=== PATIENT | female | born 1970 | race Caucasian/White ===

== ENCOUNTER 2018-06-30 06:55 | Inpatient (IN) ==
[2018-06-30] MEDS ORDERED: NITROGLYCERIN 2% OINT 1 INCH/GM PACK TOP STA (07:17)
[2018-06-30] MEDS ORDERED: ONDANSETRON 4 MG/2 ML VIAL IV STA (07:17)
[2018-06-30] MEDS ORDERED: ASPIRIN 325 MG TABLET PO STA (07:17)
[2018-06-30] MEDS ORDERED: methylPREDNISolone SOD SUC 125 MG/2 ML VIAL IV STA (07:18)
[2018-06-30] MEDS ORDERED: ALBUTEROL NEB SOLN 5 MG/ML 20 ML/BOTTLE CONT NEB STA (07:18)
[2018-06-30] MEDS ORDERED: hydrALAZINE 20 MG/1 ML VIAL IV STA ×2 (07:18→08:17)
[2018-06-30 07:30] LABS: Basophils # 0.1 10*3/uL (0.0-0.2); Basophils % 0.7 % (0.0-0.8); Eosinophils # 0.3 10*3/uL (0.0-0.87); Hematocrit 43.9 VOL% (35.7-47.0); Hemoglobin 13.6 GM/DL (12.0-16.0); Immature Granulocytes % 0.2 %; Immature Granulocytes Absolute 0.02 #; Lymphocytes # 1.6 10*3/uL (1.4-4.0); Lymphocytes % 20.3 % (21.3-54.2); Mean Corpuscular Hemoglobin 27 PG (27-34); Mean Corpuscular Volume 86.4 FL (87-102); Mean Platelet Volume 11.4 FL (9.6-12.0); Monocytes # 0.4 10*3/uL (0.11-0.8); Neutrophils # 5.6 10*3/uL (1.4-7.4); Neutrophils % 69.8 % (38.7-73.9); Platelet Count 205 T/CUMM (130-400); Red Blood Count 5.08 MC/CUMM (3.8-5.5); Red Cell Distribution Width 13.8 % (9.3-17.3)
[2018-06-30 07:40] LABS: PT Patient Result 10.7 SECS
[2018-06-30 07:55] LABS: Alanine Aminotransferase 18 U/L (13-56); Albumin 3.4 G/DL (3.4-5.0); Alkaline Phosphatase 80 U/L (45-117); Aspartate Amino Transferase 16 U/L (0-37); Bilirubin,Total < 0.39 MG/DL (0.2-1.0); Blood Urea Nitrogen 8 MG/DL (7-18); Calcium 8.8 MG/DL (8.5-10.1); Glucose 106 MG/DL (74-106); Osmolality,Calculated 270.8 MOS/KG (273-304); Sodium 137 MMOL/L (136-145); Total Protein 7.6 G/DL (6.4-8.3)
[2018-06-30 08:16] LABS: Apearance,Urine CLOUDY (Clear); Bacteria,Urine Few /HPF (Few); Bilirubin,Urine Negative (Negative); Blood, Urine Large mg/dL (Negative); Glucose,Urine (UA) Negative (Negative); Ketones,Urine Negative (Negative); Mucus,Urine Many /LPF (Occasional); Nitrite,Urine Negative (Negative); Protein,Urine 30 MG/DL; RBC,Urine 17 /HPF (0-4); Squamous Epithelial Cell,Urine Few /HPF (0-10); Urine Color Yellow (Yellow); Urine Specific Gravity 1.018 (1.001-1.035); WBC,Urine 42 /HPF (0-6)
[2018-06-30 08:39] LABS: Barbiturates Screen,Urine Negative (Negative); Benzodiazepines Screen,Urine Negative (Negative); Cannabinoid Screen,Urine Negative (Negative); Opiate Screen,Urine Negative (Negative); Phencyclidine Screen,Urine Negative (Negative)
[2018-06-30] MEDS ORDERED: cefTRIAXone 1,000 MG in SODIUM CHLORIDE 0.9% 100 ML IV STA (09:24)
[2018-06-30] MEDS ORDERED: AMPICILLIN/SULBACTAM 3,000 MG in SODIUM CHLORIDE 0.9% 100 ML IV STA (11:02)
[2018-06-30] MEDS ORDERED: HYDROmorphone 2 MG/1 ML VIAL IV STA (11:39)
[2018-06-30] MEDS ORDERED: ALBUTEROL 2.5 MG/3 ML NEB RESP TX PRN (11:57)
[2018-06-30] MEDS ORDERED: KETOROLAC 10 MG TABLET PO PRN (11:58)
[2018-06-30] MEDS ORDERED: ACETAMINOPHEN 325 MG TABLET PO PRN (11:58)
[2018-06-30] MEDS ORDERED: BISACODYL 5 MG TABLET PO PRN (11:58)
[2018-06-30] MEDS: LISINOPRIL 20 MG TABLET PO SCH (14:50)
[2018-06-30] MEDS: LACTATED RINGERS 1,000 ML IV SCH ×2 (14:50→21:30)
[2018-06-30] MEDS: PIPERACILLIN/TAZOBACTAM 3,375 MG in SODIUM CHLORIDE 0.9% 100 ML IV SCH ×2 (14:51→22:22)
[2018-06-30] MEDS: ONDANSETRON 4 MG/2 ML VIAL IV PRN (14:56)
[2018-06-30] MEDS ORDERED: ALBUTEROL 0.63 MG/3 ML NEB RESP TX PRN (15:00)
[2018-06-30] MEDS: CARVEDILOL 12.5 MG TABLET PO SCH (16:16)
[2018-07-01 05:49] LABS: Basophils % 0.1 % (0.0-0.8); Eosinophils % 0.1 % (0.00-10.9); Hematocrit 42.6 VOL% (35.7-47.0); Hemoglobin 12.9 GM/DL (12.0-16.0); Immature Granulocytes % 0.5 %; Immature Granulocytes Absolute 0.07 #; Lymphocytes # 1.9 10*3/uL (1.4-4.0); Lymphocytes % 13.8 % (21.3-54.2); Mean Corpuscular HGB Conc 30.3 GM/DL (32-36); Mean Corpuscular Hemoglobin 27 PG (27-34); Mean Corpuscular Volume 87.7 FL (87-102); Mean Platelet Volume 12.4 FL (9.6-12.0); Monocytes # 0.8 10*3/uL (0.11-0.8); Monocytes % 5.4 % (1.7-12.7); Neutrophils # 11.1 10*3/uL (1.4-7.4); Neutrophils % 80.1 % (38.7-73.9); Platelet Count 244 T/CUMM (130-400); Red Blood Count 4.86 MC/CUMM (3.8-5.5); Red Cell Distribution Width 14.2 % (9.3-17.3); White Blood Count 13.9 T/CUMM (4-12)
[2018-07-01 06:28] LABS: Alanine Aminotransferase 18 U/L (13-56); Albumin 3.1 G/DL (3.4-5.0); Alkaline Phosphatase 69 U/L (45-117); Aspartate Amino Transferase 15 U/L (0-37); Bilirubin,Total < 0.39 MG/DL (0.2-1.0); Blood Urea Nitrogen 9 MG/DL (7-18); Calcium 8.9 MG/DL (8.5-10.1); Glucose 80 MG/DL (74-106); Osmolality,Calculated 270.8 MOS/KG (273-304); Potassium 3.7 MMOL/L (3.5-5.1); Sodium 137 MMOL/L (136-145); Total Protein 7.2 G/DL (6.4-8.3)
[2018-07-01] MEDS: PIPERACILLIN/TAZOBACTAM 3,375 MG in SODIUM CHLORIDE 0.9% 100 ML IV SCH ×3 (06:38→22:28)
[2018-07-01] MEDS: LACTATED RINGERS 1,000 ML IV SCH ×4 (06:38→19:05)
[2018-07-01] MEDS ORDERED: LIDOCAINE 1%/EPI INJ 20 ML VIAL ONE (07:10)
[2018-07-01] MEDS: LISINOPRIL 20 MG TABLET PO SCH ×2 (07:35→12:57)
[2018-07-01] MEDS: CARVEDILOL 12.5 MG TABLET PO SCH ×2 (07:35→19:07)
[2018-07-01] MEDS: PANTOPRAZOLE 40 MG TABLET PO SCH ×2 (07:35→12:57)
[2018-07-01] MEDS ORDERED: ALBUTEROL/IPRATROPIUM 3 ML NEB RESP TX ONE ×2 (07:55→08:14)
[2018-07-01] MEDS ORDERED: TISSUE ADHESIVE 1 EACH APPLICATOR TOP ONE (10:43)
[2018-07-01] MEDS ORDERED: SEVOFLURANE 1 UNIT/15 MINUTE INH ONE (11:25)
[2018-07-01] MEDS ORDERED: PROPOFOL 200 MG/20 ML VIAL IV ONE (11:25)
[2018-07-01] MEDS ORDERED: MIDAZOLAM 2 MG/2 ML VIAL ONE (11:26)
[2018-07-01] MEDS ORDERED: fentaNYL 100 MCG/2 ML VIAL ONE (11:26)
[2018-07-01] MEDS ORDERED: GLYCOPYRROLATE 0.4 MG/2 ML VIAL ONE (11:26)
[2018-07-01] MEDS ORDERED: ACETAMINOPHEN 1,000 MG/100 ML VIAL IV ONE (11:26)
[2018-07-01] MEDS ORDERED: ePHEDrine 50 MG/ML AMP ONE (11:26)
[2018-07-01] MEDS ORDERED: EPINEPHrine 1 MG/ML VIAL ONE (11:26)
[2018-07-01] MEDS ORDERED: PHENYLEPHRINE 1 MG/10 ML SYRINGE IV ONE (11:26)
[2018-07-01] MEDS ORDERED: ONDANSETRON 4 MG/2 ML VIAL ONE (11:26)
[2018-07-01] MEDS ORDERED: ROCURONIUM 100 MG/10 ML VIAL IV ONE (11:27)
[2018-07-01] MEDS ORDERED: LACTATED RINGERS 1,000 ML IV ONE (11:27)
[2018-07-01] MEDS ORDERED: NEOSTIGMINE 10 MG/10 ML VIAL ONE (11:27)
[2018-07-01] MEDS: HYDROmorphone 2 MG/1 ML VIAL IV PRN ×2 (13:14→19:14)
[2018-07-01] MEDS: ONDANSETRON 4 MG/2 ML VIAL IV PRN (23:31)
[2018-07-02] MEDS: LACTATED RINGERS 1,000 ML IV SCH ×2 (03:55→05:15)
[2018-07-02] MEDS: PIPERACILLIN/TAZOBACTAM 3,375 MG in SODIUM CHLORIDE 0.9% 100 ML IV SCH (06:29)
[2018-07-02] MEDS: ONDANSETRON 4 MG/2 ML VIAL IV PRN (06:34)
[2018-07-02 08:05] VITALS: BP 125/73
[2018-07-02] MEDS: CARVEDILOL 12.5 MG TABLET PO SCH (09:16)
[2018-07-02] MEDS: PANTOPRAZOLE 40 MG TABLET PO SCH (09:16)
[2018-07-02] MEDS: LISINOPRIL 20 MG TABLET PO SCH (09:16)
== END 2018-07-02 11:45 | disposition home or self-care (01) | DRG 263 ==
LOC: N.ED 06:55 → N.3E 11:58
PROVIDERS: ADMIT Surgery; ATTEND Surgery
PROC: LAPCHOL (2018-07-01 09:52)